=== PATIENT | female | born 1990 | race African-American/Black ===

== ENCOUNTER 2017-11-12 17:11 | Observation (INO) | payer OTHER ==
[2017-11-12] MEDS ORDERED: HYDROmorphone 1 MG/ML SYRINGE IVP STA (17:50)
[2017-11-12] MEDS ORDERED: ONDANSETRON 4 MG/2 ML VIAL IVP STA (17:50)
--- NOTE | 2017-11-12 17:53 | ED Physician Documentation ---
History of Present Illness - Stated complaint Stated Complaint: ABD PX - Chief complaint Chief Complaint: Abd Pain - History obtained from History obtained from: Patient, Family - History of Present Illness Timing: Today Pain level max: 8 Pain level now: 8 Improved by: remaining still Worsened by: going over bumps in car - Additonal information Additional information: Patient is an otherwise healthy 27-year-old female who presents to the emergency department with generalized abdominal pain that started approximately noon today, has gradually moved to the right lower quadrant. Worse with movement and palpation. Nothing makes the pain better. Has not eaten anything since noon today. Denies any possibility of . She is not breast- feeding. Review of Systems Ten Systems: 10 systems reviewed and negative Constitutional: denies: Fever, Chills Ears: denies: Ear pain Throat: denies: Sore throat Cardiac: denies: Chest pain / pressure Respiratory: denies: Cough GI: denies: Vomiting, Diarrhea Skin: denies: Rash Musculoskeletal: denies: Neck pain, Back pain Neurologic: denies: Headache PD PAST MEDICAL HISTORY - Past Medical History Past Medical History: No - Past Surgical History Past Surgical History: No - Present Medications Home Medications: Ambulatory Orders Medication Instructions Recorded Confirmed Multivitamin [Multiple Vitamins] 1 each PO DAILY 11/12/17 11/12/17 - Allergies Allergies/Adverse Reactions: Allergies Allergy/AdvReac Type Severity Reaction Status Date / Time No Known Drug Allergies Allergy Verified 11/12/17 17:20 - Living Situation Living Situation: reports: With family Living Arrangement: reports: At home - Social History Does the pt smoke?: No Does the pt have substance abuse?: No - Family History Family history: reports: Non contributory PD ED PE NORMAL - Vitals Vital signs reviewed: Yes - General General: Alert and oriented X 3, No acute distress, Well developed/nourished - HEENT HEENT: Moist mucous membranes - Neck Neck: Supple, no meningeal sign - Cardiac Cardiac: RRR, Strong equal pulses - Respiratory Respiratory: No respiratory distress, Clear bilaterally - Abdomen Abdomen: Soft, Non distended, Other (TTP RLQ and suprapubic. + obturator and psoas. neg rovsing) - Female Female : Pt declined - Back Back: No CVA TTP, No spinal TTP - Derm Derm: Warm and dry, No rash - Extremities Extremities: No edema - Neuro Neuro: Alert and oriented X 3 - Psych Psych: Normal mood, Normal affect Results - Vitals Vitals: Vital Signs - 24 hr 11/12/17 11/12/17 11/12/17 17:16 18:30 19:49 Temperature 36.1 C L Heart Rate 76 76 81 Respiratory 18 17 18 Rate Blood Pressure 140/80 H 145/76 H 144/81 H O2 Saturation 100 99 99 11/12/17 22:22 Temperature Heart Rate 65 Respiratory 16 Rate Blood Pressure 144/75 H O2 Saturation 100 Oxygen O2 Source Room air - Labs Labs: Laboratory Tests 11/12/17 11/12/17 11/12/17 17:40 17:40 18:45 WBC 7.8 RBC 4.43 Hgb 12.4 Hct 37.5 MCV 84.6 MCH 27.9 MCHC 33.0 RDW 15.8 H Plt Count 247 MPV 8.8 Neut # 6.5 Lymph # 0.8 L [place] # 0.4 Eos # 0.0 Baso # 0.0 Absolute Nucleated RBC 0.00 Nucleated RBC % 0.0 Sodium 134 L Potassium 3.5 Chloride 107 Carbon Dioxide 20 L Anion Gap 7.0 BUN 14 Creatinine 0.7 Estimated GFR (MDRD) 99 Glucose 111 H Calcium 8.8 Total Bilirubin 0.7 AST 22 ALT 24 Alkaline Phosphatase 61 Total Protein 7.1 Albumin 4.2 Globulin 2.9 Albumin/Globulin Ratio 1.4 Lipase 17 L HCG, Quant < 0.60 Urine Color Urine Clarity Urine pH Ur Specific Marquez Urine Protein Urine Glucose (UA) Urine Ketones Urine Occult Blood Urine Nitrite Urine Bilirubin Urine Urobilinogen Ur Leukocyte Esterase Urine RBC Urine WBC Ur Squamous Epith Cells Urine Bacteria Urine Mucus Ur Microscopic Review Urine Culture Comments Urine HCG, Qual 11/12/17 19:10 WBC RBC Hgb Hct MCV MCH MCHC RDW Plt Count MPV Neut # Lymph # [place] # Eos # Baso # Absolute Nucleated RBC Nucleated RBC % Sodium Potassium Chloride Carbon Dioxide Anion Gap BUN Creatinine Estimated GFR (MDRD) Glucose Calcium Total Bilirubin AST ALT Alkaline Phosphatase Total Protein Albumin Globulin Albumin/Globulin Ratio Lipase HCG, Quant Urine Color YELLOW Urine Clarity CLEAR Urine pH 6.0 Ur Specific Marquez >=1.030 H Urine Protein NEGATIVE Urine Glucose (UA) NEGATIVE Urine Ketones TRACE Urine Occult Blood MODERATE H Urine Nitrite NEGATIVE Urine Bilirubin NEGATIVE Urine Urobilinogen 0.2 (NORMAL) Ur Leukocyte Esterase NEGATIVE Urine RBC 11-25 H Urine WBC 6-10 H Ur Squamous Epith Cells MANY Squamous H Urine Bacteria Few Urine Mucus Few Strands Ur Microscopic Review INDICATED Urine Culture Comments NOT INDICATED Urine HCG, Qual NEGATIVE - Rads (name of study) CT abd/pelvis Radiology: Prelim report reviewed, EMP read contemporaneously, See rad report ( Very small amount of free fluid seen in the posterior cul-de-sac, has intermediate density, could have a small amount of hemoperitoneum, possibly from a ruptured ovarian cyst. Hyperdense mass seen in the left ovary measuring 3 x 4 cm, could represent hemorrhagic cyst. Recommend a pelvic ultrasound to further evaluate. 2. Normal appendix. 3. Otherwise, as above. ) pelvic US Radiology: Prelim report reviewed, EMP read contemporaneously, See rad report ( Solid, left paraovarian mass. This may represent an exophytic or broad ligament fibroid. Pelvic MRI recommended for further characterization. 2. Small intramural uterine fibroid. 3. Otherwise normal ovaries. ) PD MEDICAL DECISION MAKING - ED course Complexity details: reviewed results, re-evaluated patient, considered differential, d/w patient, d/w family, d/w j2ee consultant ED course: Patient is a 27-year-old female who presents to the emergency department with abdominal and pelvic pain. Appears to have free fluid on her CT scan. An IV was unable to be established initially, therefore Noncon CT scan was performed. Eventually an IV was established and she was given IV fluids and pain medication. Pain well controlled. Pelvic ultrasound differs on radiology reading than my reading. On my reading she appears to have a moderate amount of free fluid and there appears to be a round cystic structure outside of the left ovary. Unclear etiology of this, possible ectopic? Therefore I consulted gynecology, Dr. Koch who came and evaluated the patient. She discussed an exploratory surgery with the patient versus serial H&H's overnight. Patient will be placed in observation for further evaluation. This document was made in part using voice recognition software. While efforts are made to proofread this document, sound alike and grammatical errors may occur. Departure - Departure Disposition: ED Place in Observation Clinical Impression: Hemorrhagic ovarian cyst, Hemoperitoneum Condition: Stable Discharge Date/Time: 11/13/17 00:00
[2017-11-12 17:57] LABS: ALBUMIN 4.2 g/dL (3.2-5.5); ALBUMIN/GLOBULIN RATIO 1.4 (1.0-2.2); BILIRUBIN,TOTAL 0.7 mg/dL (0.2-1.0); CALCIUM 8.8 mg/dL (8.5-10.3); CREATININE 0.7 mg/dL (0.4-1.0); TOTAL PROTEIN 7.1 g/dL (6.7-8.2)
[2017-11-12] MEDS ORDERED: IOPAMIDOL-300 100 ML VIAL ONE (18:08)
--- NOTE | 2017-11-12 18:44 | CT Preliminary Report ---
Exam: CT ABDOMEN/PELVIS W/O IMPRESSION: 1. Very small amount of free fluid seen in the posterior cul-de-sac, has intermediate density, could have a small amount of hemoperitoneum, possibly from a ruptured ovarian cyst. Hyperdense mass seen in the left ovary measuring 3 x 4 cm, could represent hemorrhagic cyst. Recommend a pelvic ultrasound t o further evaluate. 2. Normal appendix. 3. Otherwise, as above. [facility] SITE ID: [id number]
--- NOTE | 2017-11-12 18:47 | CT Report ---
EXAM: CT ABDOMEN AND PELVIS EXAM DATE: 11/12/2017 06:35 PM. CLINICAL HISTORY: Right lower quadrant abdominal pain. COMPARISONS: None. TECHNIQUE: Routine helical CT imaging was performed through the abdomen and pelvis. IV contrast: No. Enteric contrast: No. Reconstructions: Coronal and sagittal. In accordance with CT protocol optimization, one or more of the following dose reduction techniques w ere utilized for this exam: automated exposure control, adjustment of mA and/or KV based on patient s ize, or use of iterative reconstructive technique. FINDINGS: Lung bases: Minimal atelectasis. Liver: Normal. Gallbladder: Normal. Bile ducts: Normal. Pancreas: Normal. Spleen: Normal. Adrenals: Normal. Kidneys: Normal. No urinary tract calculi or hydronephrosis. Bowel: No dilated bowel loops are seen. Moderate stool in the cecum. Normal appendix. No acute bowel findings are seen. No free air. Very small amount of free fluid seen in the posterior cul-de-sac, has intermediate density, could have a small amount of hemoperitoneum, possibly from a ruptured ovarian cyst. Pelvis: The uterus is anteverted. Hyperdense mass seen in the left ovary measuring 3 x 4 cm, could re present a hemorrhagic cyst. Recommend a pelvic ultrasound to further evaluate. The bladder is unremar kable. No bladder calculi. Vascular structures: No acute findings. Bones: No acute bone findings. IMPRESSION: 1. Very small amount of free fluid seen in the posterior cul-de-sac, has intermediate density, could have a small amount of hemoperitoneum, possibly from a ruptured ovarian cyst. Hyperdense mass seen in the left ovary measuring 3 x 4 cm, could represent hemorrhagic cyst. Recommend a pelvic ultrasound t o further evaluate. 2. Normal appendix. 3. Otherwise, as above. [facility] Referring Provider Line: [phone] SITE ID: [id number]
[2017-11-12 18:59] LABS: BASOPHILS % (AUTO) 0.4 %; EOSINOPHILS % (AUTO) 0.2 %; HGB - HEMOGLOBIN 12.4 g/dL (12.0-16.0); LYMPHOCYTES # (AUTO) 0.8 10^3/uL (1.5-3.5); LYMPHOCYTES % (AUTO) 10.4 %; MEAN CORPUSCULAR HEMOGLOBIN 27.9 pg (27.0-31.0); MEAN CORPUSCULAR VOLUME 84.6 fL (81.0-99.0); MEAN PLATELET VOLUME 8.8 fL (7.9-10.8); MONOCYTES # (AUTO) 0.4 10^3/uL (0.0-1.0); MONOCYTES % (AUTO) 5.4 %; NEUTROPHILS # (AUTO) 6.5 10^3/uL (1.5-6.6); NEUTROPHILS % (AUTO) 83.6 %; PLT - PLATELET COUNT 247 10^3/uL (130-450); RED BLOOD COUNT 4.43 10^6/uL (4.20-5.40); RED CELL DISTRIBUTION WIDTH 15.8 % (12.0-15.0); WHITE BLOOD COUNT 7.8 x10^3/uL (4.8-10.8)
[2017-11-12 19:22] LABS: BILIRUBIN,URINE NEGATIVE (NEGATIVE); GLUCOSE, URINE (UA) NEGATIVE (NEGATIVE); KETONES,URINE (UA) TRACE mg/dL (NEGATIVE); LEUKOCYTE ESTERASE, URINE NEGATIVE (NEGATIVE); NITRITE,URINE NEGATIVE (NEGATIVE); OCCULT BLOOD,URINE MODERATE (NEGATIVE); PROTEIN,URINE NEGATIVE (NEGATIVE); UROBILINOGEN,URINE 0.2 (NORMAL) E.U./dL (NORMAL)
[2017-11-12 19:23] LABS: CLARITY,URINE CLEAR (CLEAR)
[2017-11-12 19:25] LABS: HCG UR QUAL NEGATIVE
[2017-11-12 19:59] LABS: SQUAMOUS EPITHELIAL CELL,UR MANY Squamous (<= Few)
[2017-11-12 20:00] LABS: BACTERIA,URINE Few /HPF (None Seen); MUCUS,URINE Few Strands
[2017-11-12] MEDS ORDERED: SODIUM CHLORIDE 0.9% 1,000 ML IV ONE (21:29)
--- NOTE | 2017-11-12 21:35 | Ultrasound Report ---
EXAM: PELVIC ULTRASOUND EXAM DATE: 11/12/2017 09:04 PM. CLINICAL HISTORY: R pelvic pain. COMPARISON: 11/12/2017 CT. TECHNIQUE: Realtime transabdominal pelvic scan performed to identify the uterus and adnexa and as an overview of other pelvic structures, followed by transvaginal scan to provide greater detail of the u terus and adnexa, with static image documentation. FINDINGS: Uterus: 7.3 x 4.6 x 5.3 cm, volume 93 cc. Retroverted position. Normal overall size and echotexture. Masses: There is a 1.7 x 1.4 x 1.6 cm fundal intramural fibroid. Endometrium: 16.9 mm. Normal. Cervix: Unremarkable. Right Ovary: 3.4 x 1.3 x 2.1 cm, volume 4.8 cc. Normal echotexture and blood flow. Left Ovary: 2.7 x 2.0 x 2.5 cm, volume 7.0 cc. There is a 1.6 cm involuting functional cyst within th e ovary. There is a solid, 3.8 x 2.6 x 3.6 cm heterogeneous paraovarian mass with internal flow. Free Fluid: None. Other: None. IMPRESSION: 1. Solid, left paraovarian mass. This may represent an exophytic or broad ligament fibroid. Pelvic MR I recommended for further characterization. 2. Small intramural uterine fibroid. 3. Otherwise normal ovaries. [facility] Referring Provider Line: [phone] SITE ID: [id number]
[2017-11-12] MEDS ORDERED: HYDROcod/ACETAM 5/325 MG TABLET PO PRN (23:10)
[2017-11-12] MEDS ORDERED: ONDANSETRON 4 MG/2 ML VIAL IVP PRN (23:10)
[2017-11-12] MEDS ORDERED: SODIUM CHLORIDE FLUSH 0.9% 10 ML SYRINGE IVP PRN (23:10)
[2017-11-12] MEDS ORDERED: ZOLPIDEM 5 MG TABLET PO PRN (23:10)
[2017-11-12] MEDS ORDERED: ACETAMINOPHEN 325 MG TABLET PO PRN (23:10)
[2017-11-13 00:25] LABS: HGB - HEMOGLOBIN 12.1 g/dL (12.0-16.0)
--- NOTE | 2017-11-13 03:40 | HISTORY & PHYSICAL EXAMINATION ---
DATE OF SERVICE: 11/12/2017 Physician: Yoanna Koch DO DATE OF ADMISSION: 11/12/2017 IDENTIFICATION: A 27-year-old, G0, LMP 10/17/2017. HISTORY OF PRESENT ILLNESS: I was consulted by Dr. Zeeshan Kramer to see this pleasant, young lady here at the emergency department. She states that at about noon she had an abrupt onset of abdominal pain. The patient at that time felt it was gas and went home. She took some Gas-X, and later a laxative tea, which were of no improvement. The pain was initially described as para-diaphragmatic. The pain then became generalized, and then finally radiated to the lower abdomen. In addition to pain, she was experiencing some cramping which placed her discomfort at about 10/10. She did recall that in the last 2 days, she has been moving 400-pound objects. She does work for the [employer]. PAST MEDICAL HISTORY: Borderline hypertension. PAST SURGICAL HISTORY: In 2014 transvaginal polypectomy in [place], [place]. ALLERGIES: NO KNOWN DRUG ALLERGIES. MEDICATIONS: Vitamins. SOCIAL HISTORY: She denies any tobacco or illicit drug use. She does consume alcohol on a social basis. Again, the patient works for the [employer]. She is currently doing a master's degree in health promotional leadership. Her significant other is Roberto, who was also in the [employer]. Dionne's telephone number is [phone]. The patient is originally from [place], [place]. The patient's pharmacy of choice is the [employer] [facility]. PAST OBSTETRICAL HISTORY: Nulligravida, but she does want to have children and is not on any control currently. She would be very happy if she did get , although she is not actively trying. PAST GYNECOLOGICAL HISTORY: She states that she had only 1 abnormal Pap smear, and that was when she initially joined the [employer] about 5 years ago. She had spontaneous resolution. She denied any cryotherapy, LEEP, or a cold knife cone. She also was treated for chlamydia about 9 years ago. The patient states that she has her menses about every month and will bleed for a week. She did have intermenstrual on menses which led to the diagnosis of endometrial polyps and fibroids. She denied any menorrhagia or dysmenorrhea. FAMILY HISTORY: She denies any family carcinoma. REVIEW OF SYSTEMS: Negative, unless otherwise stated. OBJECTIVE VITAL SIGNS: Temperature is 97.0. Blood pressures are 140/80, 145/76, 144/81, and 144/75. Respirations 16, O2 saturations 100% on room air. GENERAL: The patient is a well-developed, well-nourished, female in no apparent distress. She is alert and oriented x3. The patient is very pleasant, easy to speak to. HEENT: Within normal limits. She does have acne vulgaris. The patient does wear glasses. CARDIOVASCULAR: Rate is regular. No murmurs or rubs. PULMONARY: Lungs are clear to auscultation bilaterally. ABDOMEN: Soft, nontender. No rebound, rigidity, or guarding. LABORATORY DATA: Show a white count of 7.8, H and H of 12.4 and 37.5, platelets 247. Sodium 134, potassium 3.5, chloride 107, BUN 14, creatinine 0.7 , glucose 111, AST 22, ALT 24, lipase 17, quantitative hCG is 0. Urinalysis shows moderate blood, many squamous cells. Urine hCG is negative. CT of the abdomen and pelvis shows an impression of very small free fluid in the posterior cul-de-sac, has immediate density, could have a small amount of hemoperitoneum, possibly from aruptured hemorrhagic cyst. Hyperdense mass seen in the left ovary measuring 3 x 4 cm could represent hemorrhagic cyst. Recommend a pelvic ultrasound for further evaluation. Normal appendix. Pelvic ultrasound shows a uterus measuring 7.3 x 4.6 x 5.3 cm. It was retroverted. Normal overall size and echotexture. There is a 1.7 x 1.4 x 1.6 cm fundal intramural fibroid. Endometrium 16.9 mm. Cervix is unremarkable. Right ovary measures 2.4 x 1.3 x 2.1 cm. Normal echotexture and blood flow. Left ovary 2.7 x 2.0 x 2.5 cm. There is a 1.6 cm involuting functional cyst within the ovary. There is a solid 3.8 x 2.6 x 3.0 cm heterogeneous paraovarian mass with internal flow. Free fluid: None. I did visualize the studies myself and I am concerned about a circular structure in the left adnexa. Though the hCGs are negative, I am worried that this could represent an ectopic . Though rare, ectopic pregnancies can occur with a hCG of 0. ASSESSMENT 1. A 27-year-old G0. 2. Pelvic mass, hemorrhagic cyst versus ectopic . PLAN: I discussed with the patient her options. We can either: A. Do conservative management and check her H and H's to ensure that if it is a hemorrhagic cyst that we are convinced that she is not losing blood by doing serial examinations. This would require an overnight stay. The other option is to proceed to a diagnostic laparoscopy with potential cessation of any bleeding from the cyst. In addition, should this really be a ectopic , we would be able to take care of it at that time. I discussed with the patient the risks, benefits, and expectations of both options. At this point in time, the patient would prefer to do conservative management with only checking serial H and H's. Should the patient, however, become unstable, I would definitely recommend the patient undergoing a diagnostic laparoscopy at that point in time. If the patient did not have surgery during this hospitalization, I would recommend her to have a repeat ultrasound to ensure resolution of this mass. Will order an MRI tomorrow to further elucidate the mass in the left adnexa. I do not think the patient will require more than a 96 hour stay in the hospital. TD: 11/13/2017 04:40 BRUCE
[2017-11-13] MEDS ORDERED: SODIUM CHLORIDE FLUSH 0.9% 10 ML SYRINGE IVP SCH (06:00)
[2017-11-13] MEDS ORDERED: GADOBUTROL 10 MMOL/10 ML VIAL ONE (07:57)
[2017-11-13 10:43] LABS: BASOPHILS # (AUTO) 0.1 10^3/uL (0.0-0.1); EOSINOPHILS # (AUTO) 0.1 10^3/uL (0.0-0.7); EOSINOPHILS % (AUTO) 1.2 %; HGB - HEMOGLOBIN 12.1 g/dL (12.0-16.0); LYMPHOCYTES # (AUTO) 1.5 10^3/uL (1.5-3.5); LYMPHOCYTES % (AUTO) 28.1 %; MEAN CORPUSCULAR HEMOGLOBIN 27.8 pg (27.0-31.0); MEAN CORPUSCULAR HGB CONC 33.1 g/dL (32.0-36.0); MEAN CORPUSCULAR VOLUME 83.7 fL (81.0-99.0); MEAN PLATELET VOLUME 8.3 fL (7.9-10.8); MONOCYTES # (AUTO) 0.5 10^3/uL (0.0-1.0); MONOCYTES % (AUTO) 8.6 %; NEUTROPHILS # (AUTO) 3.3 10^3/uL (1.5-6.6); NEUTROPHILS % (AUTO) 61.1 %; PLT - PLATELET COUNT 226 10^3/uL (130-450); RED BLOOD COUNT 4.37 10^6/uL (4.20-5.40); RED CELL DISTRIBUTION WIDTH 15.6 % (12.0-15.0); WHITE BLOOD COUNT 5.4 x10^3/uL (4.8-10.8)
--- NOTE | 2017-11-13 11:06 | PROVIDER PROGRESS NOTE ---
Subjective - Prog Note Date Prog Note Date: 11/13/17 Prog Note Time: 10:56 - Subjective Pt reports feeling: Improved Subjective: Patient up and about. Feeling much better. Having a slight headache, likely from being NPO. Pain improved. No fevers or chills. Awaiting 10:50 MRI of the pelvis. Objective - Vital Signs/Intake & Output Reviewed Vital Signs: Yes Vital Signs: Vital Signs x48h Temp Pulse Resp BP Pulse Ox 11/13/17 07:45 99.1 F 75 16 117/63 100 11/13/17 05:20 97.7 F 74 16 127/61 Intake & Output: Intake & Output 11/10/17 11/11/17 11/12/17 11/13/17 23:59 23:59 23:59 23:59 Intake Total 1000 Balance 1000 - Objective General Appearance: positive: No acute distress Eyes Bilateral: positive: Normal inspection (Wears glasses) Abdomen: positive: Non-tender (Soft, benign. No peritoneal signs.) Extremities: positive: Non-tender Neurologic/Psychiatric: positive: Oriented x3 - Lab Results Fish Bones: 11/13/17 10:35 11/12/17 17:40 Other Labs: Lab Results x24hrs 11/13/17 11/13/17 Range/Units 10:35 00:20 WBC 5.4 (4.8-10.8) x10^3/uL RBC 4.37 (4.20-5.40) 10^6/uL Hgb 12.1 12.1 (12.0-16.0) g/dL Hct 36.6 L 36.4 L (37.0-47.0) % MCV 83.7 (81.0-99.0) fL MCH 27.8 (27.0-31.0) pg MCHC 33.1 (32.0-36.0) g/dL RDW 15.6 H (12.0-15.0) % Plt Count 226 (130-450) 10^3/uL MPV 8.3 (7.9-10.8) fL Neut # 3.3 (1.5-6.6) 10^3/uL Lymph # 1.5 (1.5-3.5) 10^3/uL [place] # 0.5 (0.0-1.0) 10^3/uL Eos # 0.1 (0.0-0.7) 10^3/uL Baso # 0.1 (0.0-0.1) 10^3/uL Absolute Nucleated RBC 0.00 x10^3/uL Nucleated RBC % 0.1 /100WBC Assessment/Plan - Problem List (1) Hemorrhagic ovarian cyst Impression: 27 yo G0 Hemorrhagic left ovarian cyst U/S photos concerning for gestational sac Stable H/H Pain improved MRI today; likely to discharge to home this PM
[2017-11-13] MEDS ORDERED: GADOBUTROL 10 MMOL/10 ML VIAL IVP ONE (11:40)
--- NOTE | 2017-11-13 13:45 | MRI Report ---
EXAM: MR PELVIS WITH AND WITHOUT CONTRAST (MR FEMALE PELVIS) EXAM DATE: 11/13/2017 11:56 AM. CLINICAL HISTORY: Pelvic mass. COMPARISON: Abdominal pelvic CT 11/12/2017 and pelvic ultrasound 11/12/2017. TECHNIQUE: Multiplanar breath-hold T1, T2 obtained through the pelvis on an MR scanner. Images obtai sarah before and after administration of 8.5 mL Gadavist intravenous contrast. FINDINGS: Reproductive Organs: Uterus: The uterus is anteverted and measures 7.8 x 4.5 x 6.4 cm with volume 117 cc. The endometrial stripe measures 10 mm. Previously described left adnexal mass corresponds to an exophytic left uterine fibroid measuring 3.8 x 3.6 x 3.8 cm. Fibroid enhances and demonstrates no significant cystic components. A smaller left fundal subserosal fibroid measures 1.6 x 1.5 x 1.7 cm. Right Ovary: The right ovary measures 2.2 x 1.3 x 3.2 cm with volume 4.8 cc. The right ovary appears normal. Left Ovary: The left ovary measures 2.2 x 2.6 x 2.0 cm with volume 6 cc. Left ovary contains a 2.1 cm collapsing cyst or follicle. Bowel: The visualized portions of the small bowel, colon, and rectum appear normal. Appendix not iden tified. Bladder: The urinary bladder is mostly collapsed and grossly unremarkable. Other: Small to moderate amount of physiologic free fluid in cul-de-sac. IMPRESSION: 1. An exophytic fibroid corresponds to the left adnexal lesion noted on recent ultrasound. A smaller left fundal subserosal fibroid is also seen. 2. Left ovary contains a 2.1 cm collapsing cyst or follicle. [facility] Referring Provider Line: [phone] SITE ID: [id number]
--- NOTE | 2017-11-13 13:54 | PROVIDER PROGRESS NOTE ---
Subjective - Prog Note Date Prog Note Date: 11/13/17 Prog Note Time: 13:52 - Subjective Pt reports feeling: Improved Objective - Vital Signs/Intake & Output Vital Signs: Vital Signs x48h Temp Pulse Resp BP Pulse Ox 11/13/17 07:45 99.1 F 75 16 117/63 100 Intake & Output: Intake & Output 11/10/17 11/11/17 11/12/17 11/13/17 23:59 23:59 23:59 23:59 Intake Total 1000 Balance 1000 - Lab Results Fish Bones: 11/13/17 10:35 11/12/17 17:40 Other Labs: Lab Results x24hrs 11/13/17 11/13/17 Range/Units 10:35 00:20 WBC 5.4 (4.8-10.8) x10^3/uL RBC 4.37 (4.20-5.40) 10^6/uL Hgb 12.1 12.1 (12.0-16.0) g/dL Hct 36.6 L 36.4 L (37.0-47.0) % MCV 83.7 (81.0-99.0) fL MCH 27.8 (27.0-31.0) pg MCHC 33.1 (32.0-36.0) g/dL RDW 15.6 H (12.0-15.0) % Plt Count 226 (130-450) 10^3/uL MPV 8.3 (7.9-10.8) fL Neut # 3.3 (1.5-6.6) 10^3/uL Lymph # 1.5 (1.5-3.5) 10^3/uL [place] # 0.5 (0.0-1.0) 10^3/uL Eos # 0.1 (0.0-0.7) 10^3/uL Baso # 0.1 (0.0-0.1) 10^3/uL Absolute Nucleated RBC 0.00 x10^3/uL Nucleated RBC % 0.1 /100WBC Assessment/Plan - Problem List (1) Hemorrhagic ovarian cyst Impression: 27 yo G0 Clinically improving MRI today demonstrating a 2.1 cm collapsing cyst of follicle in the left ovary; exophytic fibroid corresponds to the left adnexal lesion; smaller left fundal subserosal fibroid also seen Will discharge to home today Follow up with myself at [facility] in 1-2 weeks OTC ibuprofen for pain Discharge Plan Disposition: Home, Self Care Condition: Good Diet: Regular Activity Restrictions: No Restrictions Shower Restrictions: No Driving Restrictions: No No Smoking: If you smoke, Please STOP! Call for help. Follow-up with: BEE ALBRIGHT [Primary Care Provider] -
[2017-11-13 14:28] VITALS: BP 122/70
== END 2017-11-13 14:45 | disposition home or self-care (01) ==
LOC: ED 17:11 → OBS 23:10
PROVIDERS: ADMIT Obstetrics & Gynecology; ATTEND Obstetrics & Gynecology
DX: N83.202 Unspecified ovarian cyst, left side (principal); D25.2 Subserosal leiomyoma of uterus; R03.0 Elevated blood-pressure reading, without diagnosis of hypertension; Z86.19 Personal history of other infectious and parasitic diseases
CPT/HCPCS: 36415; 72197; 74176; 76830; 76856; 80053; 81001; 81025; 83690; 84702; 85014; 85018; 85025; 96361; 96374; 99284; 99285; A9585; G0378; J1170; 81003; 87086